=== PATIENT | female | born 2000 | race Caucasian/White ===

== ENCOUNTER → 2023-09-11 | Outpatient (CLI) | payer OTHER ==
[2023-09-11 10:24] LABS: BASO # 0.05 K/mm3 (0.02-0.10); EOS % 1.4 % (0.1-4.0); HEMATOCRIT 39.7 % (35.0-45.0); HEMOGLOBIN 11.2 g/dL (12.0-15.0); MEAN CELL VOLUME 68 fl (78-95); MEAN CORPUSCULAR HEMOGLOBIN 19 pg (26-32); MEAN CORPUSCULAR HGB CONC 28 g/dL (33-37); MEAN PLATELET VOLUME 9.7 fl (7.4-10.4); MONO # 0.64 K/mm3 (0.10-0.60); NEU # 4.41 K/mm3 (1.40-6.50); PLATELET COUNT 232 K/mm3 (130-400); RED BLOOD COUNT 5.84 M/mm3 (4.10-5.30); RED CELL DISTRIBUTION WIDTH 18.6 % (11.5-14.5); WHITE BLOOD COUNT 7.2 K/mm3 (4.8-10.8)
[2023-09-11 10:30] LABS: ALBUMIN 4.6 g/dL (3.5-5.0)
[2023-09-11 10:31] LABS: CALCIUM 10.1 mg/dL (8.3-10.5)
[2023-09-11 10:32] LABS: TOTAL PROTEIN 7.6 g/dL (6.4-8.3)
[2023-09-11 10:34] LABS: TOTAL BILIRUBIN 0.3 mg/dL (0.2-1.2)
[2023-09-11 22:08] LABS: FOLLICLE STIMULATING HORMONE 2.9 mIU/mL (()); LUTENIZING HORMONE 5.3 mIU/mL (()); PROGESTERONE 9.5 ng/mL (())
== END ==
LOC: LAB 10:06
PROVIDERS: Nurse Practitioner
DX: Z00.00 Encounter for general adult medical examination without abnormal findings (principal); E78.5 Hyperlipidemia, unspecified; N91.1 Secondary amenorrhea

== ENCOUNTER → 2023-10-02 | Outpatient (CLI) | payer OTHER ==
[~2023-10-02] MED LIST: Iohexol 350 - 100 ML VIAL IV ONE
== END ==
LOC: RAD 10:18
DX: I78.0 Hereditary hemorrhagic telangiectasia (principal)
CPT/HCPCS: Q9967

== ENCOUNTER → 2023-11-21 | Outpatient (CLI) | payer OTHER | LOC: RAD 09:13 | DX: Q27.30 Arteriovenous malformation, site unspecified (principal); I78.0 Hereditary hemorrhagic telangiectasia | CPT/HCPCS: Q9967 ==